=== PATIENT | male | born 1960 | race Caucasian/White ===

== ENCOUNTER 2019-05-23 13:57 | Outpatient (CLI) | payer OTHER, SELFPAY ==
--- NOTE | ~2019-05-23 | CT_ITS ---
EXAMINATION:CT chest wo con DATE: 05/23/2019 14:32 INDICATION: Pulmonary mycobacterial infection. TECHNIQUE: Computed tomography (CT) of the chest was performed without intravenous contrast. Automate d exposure control and iterative reconstruction technique were employed. The dose-length product (DLP ) was 210.03 mGy-cm. COMPARISON: Chest CT 02/23/2018 FINDINGS: There is severe emphysema. There is a new 18 mm nodule in right lower lobe. There is a new 5 mm nodule in right lower lobe. Some nodules previously seen are resolved. Calcified bilateral pulmo nary nodules are consistent with old granulomatous disease. No pleural effusion. There is diffuse enl argement of the thyroid. The heart size is normal. There are calcifications of the aortic valve and c oronary arteries. No pericardial effusion. There are no pathologically enlarged lymph nodes. There is thoracic dextroscoliosis and mild spondylosis. IMPRESSION: 1. New 18 mm and 5 mm right lower lobe pulmonary nodules, most likely infection. Given that the patie nt's pulmonary status would likely preclude any lung biopsy, consider follow-up chest CT in 3-6 month s to exclude malignancy. 2. Severe emphysema. 3. Goiter. Reviewed, dictated and finalized at location A. S AND MARKETING REPRESENTATIVE IMPRESSION: 1. New 18 mm and 5 mm right lower lobe pulmonary nodules, most likely infection . Given that the patient's pulmonary status would likely preclude any lung biop sy, consider follow-up chest CT in 3-6 months to exclude malignancy. 2. Severe emphysema. 3. Goiter.
== END 2019-05-23 13:58 | disposition home or self-care (01) ==
PROVIDERS: PCP Family Medicine Adolescent Medicine; Visit Provider Internal Medicine Critical Care Medicine
DX: A31.0 Pulmonary mycobacterial infection (principal); E04.9 Nontoxic goiter, unspecified; J43.9 Emphysema, unspecified; R91.8 Other nonspecific abnormal finding of lung field
CPT/HCPCS: 71250

== ENCOUNTER 2019-06-24 14:13 | Outpatient (RCR) | payer OTHER, SELFPAY | END 2019-09-15 23:59 | disposition home or self-care (01) | LOC: ANHLAB 14:13 | PROVIDERS: PCP Family Medicine Adolescent Medicine; Visit Provider Nurse Practitioner Family | DX: A31.0 Pulmonary mycobacterial infection (principal) | CPT/HCPCS: 87015; 87070; 87102; 87106; 87107; 87116; 87205; 87206 ==

== ENCOUNTER 2019-07-08 02:16 | Day surgery (SDC) | payer OTHER, SELFPAY ==
[2019-07-07 15:41] VITALS: BMI 23.2
[2019-07-08] VITALS (8 sets, daily range): BP systolic 101–127; BP diastolic 67–86; PULSE 65–91; RESP 14–20; TEMP 36.6; O2SAT 94–100; BMI 23.1
--- NOTE | ~2019-07-08 | CT_ITS ---
EXAMINATION: CT soft tiss neck chst ab w DATE: 07/08/2019 12:22 INDICATION: Hemoptysis. Cervical lymphadenopathy. TECHNIQUE: Computed tomography (CT) of the neck, chest, and abdomen was performed with 100 mL Omnipaq ue-350 intravenous contrast. Automated exposure control and iterative reconstruction technique were e mployed. The dose-length product was 1267.19 mGy-cm. COMPARISON: Chest CT 05/23/2019 FINDINGS: CT NECK: The thyroid is severely enlarged. There are no pathologically enlarged lymph nodes. The cerv ical carotid arteries are normal. There is moderate cervical spondylosis. CT CHEST: There is severe emphysema. There is scarring in the upper lobes. There are airspace and jorge l undglass opacities in right lower lobe, consistent with pneumonia. There are tree-in-bud opacities in basilar left lower lobe, consistent with pneumonia. There is mild atelectasis in left lower lobe. No pleural effusion. There is mild mediastinal lymphadenopathy, likely reactive. The heart size is norm al. There are calcifications of the aortic valve. There are coronary artery calcifications. No perica rdial effusion. There is thoracic dextroscoliosis and mild spondylosis. CT ABDOMEN: The liver, spleen, gallbladder, pancreas, and adrenal glands are normal. There are cysts in the kidneys measuring up to 4 mm on the left. There are no dilated loops of bowel. There are no pa thologically enlarged lymph nodes. There is no free intraperitoneal fluid. There is severe lumbar spo ndylosis. IMPRESSION: 1. Pneumonia involving the lower lobes, right worse than left. 2. Severe emphysema. 3. Goiter. 4. Mild mediastinal lymphadenopathy, likely reactive. Reviewed, dictated and finalized at location A.
--- NOTE | 2019-07-08 07:53 | WPDANESEPPF ---
Anes - Initial Pre Proc Eval Procedure: Operation Date: 07/08/19 09:00 Proposed Procedures p Bronchoscopy with Fluoroscopy - Tessa Grace MD Date/Time: 07/08/19 07:53 Surgeon: Tessa Grace MD Pre Op Diagnosis: hemoptysis Patient Data Age: 59 Gender: M Height: 6 ft 1 in Weight: 80 kg Allergies Allergy/AdvReac Type Severity Reaction Status Date / Time piperacillin Allergy Severe RASH, LIP Unverified 07/08/19 07:37 SWELLING/TINGLING, SOB tazobactam Allergy Severe RASH, LIP Unverified 07/08/19 07:37 SWELLING/TINGLING, SOB Penicillins Allergy Unknown Verified 07/08/19 07:37 Sulfa (Sulfonamide Allergy Unknown Verified 07/08/19 07:37 Antibiotics) Home Medications Medication Instructions Recorded Confirmed Type fluticasone fur. 100 mcg-umeclid 1 inhalation INHALATION DAILY #60 03/08/19 07/08/19 Rx 62.5 mcg-vilant 25 mcg each inhalat.powder albuterol sulfate 90 mcg/actuation 1 inhalation INHALATION Q4H 06/09/19 07/08/19 History aerosol inhaler aspirin 81 mg tablet,delayed 81 mg PO DAILY 06/09/19 07/08/19 History release diphenoxylate-atropine 2.5 1 tablet PO TID 06/09/19 07/08/19 History mg-0.025 mg tablet fludrocortisone 0.1 mg tablet 0.1 mg PO DAILY 06/09/19 07/08/19 History gabapentin 300 mg capsule 300 mg PO DAILY 06/09/19 07/08/19 History lithium carbonate 300 mg capsule 300 mg PO BID 06/09/19 07/07/19 History methimazole 20 mg tablet 25 mg PO DAILY tablet 06/09/19 07/07/19 History metoprolol tartrate 25 mg tablet 25 mg PO DAILY 06/09/19 07/07/19 History eemmsqxv-jur-pnnkl acid 300 1 tablet PO DAILY 06/09/19 07/07/19 History mcg-lycopene 600 mcg-lutein 300 mcg tablet nitroglycerin 0.4 mg sublingual 0.4 mg SUBLINGUAL Q5M 06/09/19 07/07/19 History tablet oxybutynin chloride 10 mg 10 mg PO DAILY 06/09/19 07/07/19 History tablet,extended release 24 hr prednisone 10 mg tablet 10 mg PO DAILY 06/09/19 07/07/19 History tamsulosin 0.4 mg capsule 0.4 mg PO DAILY 06/09/19 07/07/19 History vilazodone 40 mg tablet 40 mg PO DAILY 06/09/19 07/07/19 History vitamin B complex 1 tablet PO DAILY 06/09/19 07/07/19 History albuterol sulfate [ProAir HFA] INHALATION 07/07/19 History andtbcxcpjm-ycwemobjo-hxdfyjzl INHALATION 07/07/19 History [Trelegy Ellipta] hydrocodone-acetaminophen tablet 07/07/19 History Patient hx anesthesia problems: none Family hx anesthesia problems: none PMFSH Past Medical History Medical History Bipolar disorder Bronchiectasis Chronic back pain COPD (chronic obstructive pulmonary disease) Depression Emphysema (subcutaneous) (surgical) resulting from a procedure Hypertension Hypoxemia Pulmonary Mycobacterium avium complex (MAC) infection Tobacco abuse Surgical History Surgical History History of adenoidectomy History of appendectomy History of tonsillectomy Family History Family History Father Diabetes mellitus Hypertension Family history of malignant neoplasm Mother Diabetes mellitus Hypertension Breast cancer in situ Sibling Patient's brother is in good health Social History Social History Years smoked: 35 Smoking status: Light tobacco smoker Tobacco type: cigarettes Anes - Eval Final PreProcedure Day of Procedure 07/08/19 07:53 Patient weight: normal Heart: regular rate and rhythm Lungs: decreased breath sounds Airway: Mallampati scale class II Neurological: alert and oriented Last oral intake: >/= 8 hours ASA classification: IV Emergent: no Anesthetic plan: proceed Anesthesia type and monitoring: general LMA and standard monitoring Informed Consent: The patient's anesthetic plan and its attendant risks and benefits were discussed with the patient/family/POA
[2019-07-08] MEDS: LACTATED RINGERS 1,000 ML 30 ML IV CONT (08:17)
--- NOTE | 2019-07-08 08:18 | SUR.PREOP ---
0810 patient concerned about bleeding during the procedure since he took his aspirin yesterday and spoke wit someone at the hospital this morning and was told blood work would need to be done before the procedure. Patient couldn't remember who he spoke with. I called Dr. Grace at 0818 regarding this issue. No order were received. The message was relayed to the patient and he voiced understanding. Amara Rodriguez Rn
[2019-07-08 11:14] LABS: Basophils Absolute Auto 0.1 K/mm3 (0.0-0.1); Basophils Percent Auto 0.8 % (0.2-1.2); Eosinophils Absolute Auto 0.3 K/mm3 (0-0.3); Eosinophils Percent Auto 4.4 % (0-4.4); Hemoglobin 10.6 g/dL (14.0-18.0); Immature Granulocyte Absolute 0.02 K/mm3 (0.00-0.031); Immature Granulocyte Percent A 0.3 % (0-0.5); Lymphocytes Absolute Auto 1.39 K/mm3 (0.9-3.2); Lymphocytes Percent Auto 22.6 % (18.3-44.2); Mean Corpuscular HGB Conc 31.2 g/dl (32-36); Mean Corpuscular Volume 99.4 fl (80-100); Mean Platelet Volume 8.6 fl (7.4-10.4); Monocytes Absolute Auto 0.5 K/mm3 (0.1-0.6); Monocytes Percent Auto 8.6 % (2.6-8.5); Neutrophils Absolute Auto 3.9 K/mm3 (1.3-6.7); Neutrophils Percent Auto 63.3 % (45.5-73.1); Platelet Count Result 191 k/mm3 (150-375); Red Blood Count 3.42 M/mm3 (4.6-6.20); Red Cell Distribution Width 13.9 % (11.5-14.5); White Blood Count 6.1 K/mm3 (4.5-10.0)
--- NOTE | 2019-07-08 11:17 | SUR.PHASEII ---
PT TRANSFERRED BY WHEELCHAIR TO CT SCAN DR BAILEY WILL TALK TO HIM THERE AND DISCHARGE, CT AWARE TO REMOVE IV PRIOR TO DISCHARGE
[2019-07-08 11:24] LABS: INR 1.1; Prothrombin Time 13.6 Seconds (11.1-14.7)
[2019-07-08 11:25] LABS: Partial Thromboplastin Time 31.6 SECONDS (22.3-36.8)
[2019-07-08 11:26] LABS: Blood Urea Nitrogen 11 mg/dL (9-20); Calcium 9.5 mg/dL (8.4-10.2); Carbon Dioxide 33 mmol/L (22-30); Chloride 100 mmol/L (98-107); Estimated CRCL calculation 81 ml/min; Estimated Glomerular Filt Rate > 60; Glucose 89 mg/dL (75-110); Potassium 4.6 mmol/L (3.4-5.0); Sodium 138 mmol/L (137-145)
[2019-07-09 14:35] LABS: Pan-SARS RNA: NEGATIVE (NEGATIVE); SARS-CoV-2 RNA: NEGATIVE (NEGATIVE)
--- NOTE | 2019-07-20 14:50 | WPDHPUPDATE1 ---
History and Physical Update Update Date/Time: 07/20/19 14:50 History and Physical has been reviewed from office visit June 09, 2019, including an updated exam of the patient. There are NO changes in the patient's condition. Risks, benefits, and alternatives have been discussed and questions answered. Patient agrees to proceed with procedure.
== END 2019-07-08 11:24 | disposition home or self-care (01) ==
PROVIDERS: PCP Family Medicine Adolescent Medicine; Visit Provider Internal Medicine Critical Care Medicine
PROC: 0BJ08ZZ Inspection of Tracheobronchial Tree, Via Natural or Artificial Opening Endoscopic (ICD-10-PCS; CPT 31622; principal; 2019-07-08 09:00)
DX: R04.2 Hemoptysis (principal); R59.0 Localized enlarged lymph nodes; R91.8 Other nonspecific abnormal finding of lung field; J44.9 Chronic obstructive pulmonary disease, unspecified; E04.9 Nontoxic goiter, unspecified; I10 Essential (primary) hypertension; F31.9 Bipolar disorder, unspecified; F17.210 Nicotine dependence, cigarettes, uncomplicated; Z79.82 Long term (current) use of aspirin; Z86.19 Personal history of other infectious and parasitic diseases; Z99.81 Dependence on supplemental oxygen; Z20.828 Contact with and (suspected) exposure to other viral communicable diseases
CPT/HCPCS: 31624; 36415; 70491; 71260; 74160; 80048; 85025; 85610; 85730; 87015; 87070; 87102; 87116; 87205; 87206; 87635; J0330; J2370; J2704; J3010; J7120; Q9967; U0002

== ENCOUNTER 2019-07-18 14:39 | Outpatient (CLI) | payer OTHER, SELFPAY ==
[2019-07-18 15:33] LABS: T4 Thyroxine 1.25 ug/dL (5.53-11.0)
[2019-07-21 02:05] LABS: Thyroid Peroxidase Antibodies <1 IU/mL (<9)
== END 2019-07-18 14:40 | disposition home or self-care (01) ==
PROVIDERS: PCP Family Medicine Adolescent Medicine; Visit Provider Family Medicine Adolescent Medicine
DX: E04.0 Nontoxic diffuse goiter (principal)
CPT/HCPCS: 36415; 84436; 84443; 84480; 86376

== ENCOUNTER 2020-02-22 16:16 | Inpatient (IN) | payer OTHER, SELFPAY ==
[2020-02-22] VITALS (13 sets, daily range): BP systolic 106–134; BP diastolic 71–85; PULSE 89–108; RESP 10–23; TEMP 36.6–36.8; O2SAT 94–100; BMI 25.9
--- NOTE | ~2020-02-22 | XR_ITS ---
EXAMINATION: XR chest 1V portable DATE: 02/22/2020 17:17 INDICATION: COPD presenting with shortness of breath TECHNIQUE: frontal view of the chest was obtained. COMPARISON: 10/25/[address] dated 05/23/2019 FINDINGS: Again seen is severe emphysema with regions of increased lucency and architectural distortion with li near bands of atelectasis/scarring with lateral mid and upper lung zone predominance. There is increa sed indistinct interstitial pattern in the bilateral mid and lower lung zones with bronchial wall thi ckening suggesting mild pulmonary edema although differential would include pneumonia. No pleural eff usion or pneumothorax. The cardiomediastinal silhouette is normal. Mild thoracic dextroscoliosis with mild spondylosis. IMPRESSION: 1. Increased interstitial pattern and bronchial wall thickening in the bilateral mid and lower lung z ones likely representing mild pulmonary edema superimposed over severe emphysema. Differential would include pneumonia. Reviewed, dictated and finalized at location . CTION MOLDING MACHINE SETTER IMPRESSION: 1. Increased interstitial pattern and bronchial wall thickening in the bilatera l mid and lower lung zones likely representing mild pulmonary edema superimpose d over severe emphysema. Differential would include pneumonia.
--- NOTE | ~2020-02-22 | CT_ITS ---
EXAMINATION: CTA chest PE protocol DATE: 02/22/2020 18:04 INDICATION: Chest pain and shortness of breath TECHNIQUE: Computed tomography (CT) pulmonary angiogram of the chest was performed with 100 mL Omnipa que-350 intravenous contrast. Additional 3D reconstructions utilizing coronal maximum intensity proje ction (MIP) were performed. Automated exposure control and iterative reconstruction technique were em ployed. The dose-length product was 610.54 mGy-cm. COMPARISON: 07/08/2019, 05/23/2019 and 05/12/2016 FINDINGS: Excellent contrast opacification of the pulmonary arteries. There is mild streak artifact from dense contrast in the superior vena cava and right atrium. Mild scattered respiratory motion artifact which mildly decreases sensitivity in some of the smaller subsegmental pulmonary arteries at the left lung base. There appears be a single pulmonary arterial filling defect in the apical posterior segmental pulmonary artery of the left upper lobe which extends to the region of scarring which appears new sin ce the most recent study at which time it appeared well opacified with contrast. No other evident pul monary arterial filling defects identified. Severe emphysema with unchanged linear scarring in the bi lateral upper lobes. There are few patchy areas of consolidation in the left upper lobe extending tow ards the lingula consistent with pneumonia. There is scattered groundglass opacity and increased prom inence of the pulmonary interstitium in the right middle and lower lobes with some additional consoli dation in the posterior basilar right lower lobe which could represent either additional pneumonia or less likely asymmetric pulmonary edema. No pleural effusion. Multiple calcified nodules scattered th roughout the left lung consistent with old granulomatous disease. Heart size is normal. No pericardia l effusion. Atherosclerotic coronary artery calcification and aortic valve calcification. Thoracic ao rta is normal in caliber with no dissection. Margin of the central pulmonary arteries consistent with pulmonary arterial hypertension. Again seen is marked enlargement of the thyroid. No pathologically enlarged thoracic lymphadenopathy. Visualized upper abdomen is unremarkable. Thoracic dextroscoliosis with mild spondylosis. IMPRESSION: 1. Single pulmonary arterial filling defect in the apical posterior segmental pulmonary artery of the left upper lobe consistent with pulmonary embolism. 2. New patchy airspace opacities in the left upper lobe and lingula and more diffuse opacities in the right middle and lower lobes concerning for pneumonia or the right middle and lower lobes less likel y asymmetric pulmonary edema. 3. Severe emphysema with chronic scarring in the bilateral upper lobes. 4. Chronic enlargement of the central pulmonary arteries consistent with arterial hypertension. 5. Goiter. Reviewed, dictated and finalized at location H. NGINEER IMPRESSION: 1. Single pulmonary arterial filling defect in the apical posterior segmental p ulmonary artery of the left upper lobe consistent with pulmonary embolism. 2. New patchy airspace opacities in the left upper lobe and lingula and more di ffuse opacities in the right middle and lower lobes concerning for pneumonia or the right middle and lower lobes less likely asymmetric pulmonary edema. 3. Severe emphysema with chronic scarring in the bilateral upper lobes. 4. Chronic enlargement of the central pulmonary arteries consistent with arteri al hypertension. 5. Goiter.
--- NOTE | 2020-02-22 16:43 | ECG_ITS ---
Measurements Intervals [place] Rate: 100 P: 77 WA: 126 QRS: 70 QRSD: 110 T: 51 QT: 327 QTc: 423 Interpretive Statements SINUS TACHYCARDIA POSSIBLE RIGHT ATRIAL ENLARGEMENT INTRAVENTRICULAR CONDUCTION DELAY PEAKED T WAVES- CONSIDER HYPERKALEMIA OR ISCHEMIA BASELINE ARTIFACT- I, II, III, AVR, AVL, AVF, V1 ABNORMAL ECG Electronically Signed On 02-23-2020 8:43:21 CIGARETTE INSPECTOR by Maycol Grady D.O.
--- NOTE | 2020-02-22 16:51 | ED.SOB ---
HPI - SOB/Dyspnea General Chief Complaint: Shortness of Breath/Dyspnea Stated Complaint: SOB Time Seen by Provider: 02/22/20 16:18 Source: patient Mode of arrival: EMS Limitations: no limitations History of Present Illness HPI Narrative: This patient is a 59 year old male with history of MAC infection, COPD, home oxygen 8L [place] who presents from home with complaint of shortness of breath. He states approximately 1 week ago he began not feeling well. He reports increased fatigue, chills and worsening cough with nixon sputum. 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 Lopez, 3 days ago and he was started on azithromycin. He states his symptoms have not improved. He states tonight he was having a conversation with someone and it was upsetting. He was on the phone for an hour and after he got off the phone he states he states he started feeling short of breath. He reports he was checking his oxygen and it seemed to be dropping so he became scared and starting having more shortness of breath. He also reports chest pain. He called 911 .EMs reports his oxygen saturation was 88% on his home 8 L NC, so he was placed on a NRB. On arrival to ER, he was placed back on his home oxygen and his oxygen saturation is 98% on room air. Related Data Home Medications Medication Instructions Recorded Confirmed albuterol sulfate 90 mcg/actuation 1 inhalation INHALATION Q4H 06/09/19 07/08/19 aerosol inhaler aspirin 81 mg tablet,delayed 81 mg PO DAILY 06/09/19 07/08/19 release diphenoxylate-atropine 2.5 1 tablet PO TID 06/09/19 07/08/19 mg-0.025 mg tablet fludrocortisone 0.1 mg tablet 0.1 mg PO DAILY 06/09/19 07/08/19 gabapentin 300 mg capsule 300 mg PO DAILY 06/09/19 07/08/19 lithium carbonate 300 mg capsule 300 mg PO BID 06/09/19 07/07/19 methimazole 20 mg tablet 25 mg PO DAILY tablet 06/09/19 07/07/19 metoprolol tartrate 25 mg tablet 25 mg PO DAILY 06/09/19 07/07/19 iclrdjot-zqs-dwucn acid 300 1 tablet PO DAILY 06/09/19 07/07/19 mcg-lycopene 600 mcg-lutein 300 mcg tablet nitroglycerin 0.4 mg sublingual 0.4 mg SUBLINGUAL Q5M 06/09/19 07/07/19 tablet oxybutynin chloride 10 mg 10 mg PO DAILY 06/09/19 07/07/19 tablet,extended release 24 hr tamsulosin 0.4 mg capsule 0.4 mg PO DAILY 06/09/19 07/07/19 vilazodone 40 mg tablet 40 mg PO DAILY 06/09/19 07/07/19 vitamin B complex 1 tablet PO DAILY 06/09/19 07/07/19 hydrocodone-acetaminophen tablet 07/07/19 Allergies Allergy/AdvReac Type Severity Reaction Status Date / Time piperacillin Allergy Severe RASH, LIP Verified 02/22/20 21:49 SWELLING/TINGLING, SOB tazobactam Allergy Severe RASH, LIP Verified 02/22/20 21:49 SWELLING/TINGLING, SOB Penicillins Allergy Unknown Unknown Verified 02/22/20 21:49 Sulfa (Sulfonamide Allergy Unknown Swelling Verified 02/22/20 21:49 Antibiotics) Review of Systems Review of Systems: All systems reviewed & are unremarkable except as noted in HPI and below Constitutional: Constitutional: Reports chills and Denies fever(s) ENT: Denies sore throat Cardiovascular: Cardiovascular: Reports chest pain and Denies radiating jaw, neck or arm pain Respiratory: Respiratory: Reports cough, Reports dyspnea and Reports wheezing Gastrointestinal: Gastrointestinal: Denies abdominal pain, Denies nausea and Denies vomiting PMFSH Past Medical History Medical History Bipolar disorder BPH (benign prostatic hyperplasia) Bronchiectasis Chronic back pain COPD (chronic obstructive pulmonary disease) Depression With previous suicide attempts Emphysema lung History of hepatitis C History of mitral valve prolapse Hypertension Hypoxemia Pulmonary Mycobacterium avium complex (MAC) infection Tobacco abuse Surgical History Surgical History H/O colonoscopy with polypectomy History of adenoidectomy History of appendectomy History
[2020-02-22 17:01] LABS: Basophils Percent Auto 0.1 % (0.2-1.2); Eosinophils Percent Auto 0.4 % (0-4.4); Hematocrit 34.6 % (42.0-52.0); Hemoglobin 10.5 g/dL (14.0-18.0); Immature Granulocyte Absolute 0.04 K/mm3 (0.00-0.031); Immature Granulocyte Percent A 0.4 % (0-0.5); Lymphocytes Absolute Auto 0.35 K/mm3 (0.9-3.2); Lymphocytes Percent Auto 3.7 % (18.3-44.2); Mean Corpuscular HGB Conc 30.3 g/dl (32-36); Mean Corpuscular Hemoglobin 28.6 pg (26-34); Mean Corpuscular Volume 94.3 fl (80-100); Mean Platelet Volume 9.3 fl (7.4-10.4); Monocytes Absolute Auto 0.5 K/mm3 (0.1-0.6); Monocytes Percent Auto 5.3 % (2.6-8.5); Neutrophils Absolute Auto 8.6 K/mm3 (1.3-6.7); Neutrophils Percent Auto 90.1 % (45.5-73.1); Platelet Count Result 207 k/mm3 (150-375); Red Blood Count 3.67 M/mm3 (4.6-6.20); Red Cell Distribution Width 13.8 % (11.5-14.5); White Blood Count 9.6 K/mm3 (4.5-10.0)
[2020-02-22 17:06] LABS: Alveolar/Arterial O2 Gradient 184.2 mmHg; Base Excess ABG 15.1 mEq/l (+/-2.0); Fractional Inspired Oxygen 44 %; HCO3 ABG 42.3 mEq/l (22.0-26.0); Oxygen Content ABG 14.4 %vol (16.0-22.0); Oxygen Saturation ABG 87.5 % (95.0-100.0); Oxyhemoglobin 89.8 % THb (90.0-100.0); PO2 ABG 54.1 mmHg (80.0-100.0); PO2 FiO2 Ratio Arterial Blood 1.23 %; Total Hemoglobin 11.4 g/dL (12.0-18.0); pH ABG 7.423 (7.350-7.450)
[2020-02-22 17:11] LABS: INR 0.9; Prothrombin Time 12.7 Seconds (11.1-14.7)
[2020-02-22 17:12] LABS: Device NASAL CANNULA; Modified Allen's Test Pass; PCO2 ABG 66.2 mmHg (35.0-45.0); Site Drawn LEFT RADIAL
[2020-02-22 17:15] LABS: Alanine Aminotransferase 25 U/L (4-50); Albumin Level 3.8 g/dL (3.5-5.1); Alkaline Phosphatase 79 U/L (38-126); Anion Gap 6.99999 mmol/L (8-16); Aspartate Amino Transferase 28 U/L (17-59); Bilirubin,Total 0.5 mg/dL (0.2-1.3); Blood Urea Nitrogen 17 mg/dL (9-20); Calcium 9.7 mg/dL (8.4-10.2); Carbon Dioxide > 40 mmol/L (22-30); Chloride 95 mmol/L (98-107); Estimated CRCL calculation 104 ml/min; Estimated Glomerular Filt Rate > 60; Glucose 163 mg/dL (75-110); Potassium 3.9 mmol/L (3.4-5.0); Sodium 142 mmol/L (137-145)
[2020-02-22 17:20] LABS: Hypochromasia 1+ (NORMAL); Platelet Estimate Adequate (Adequate)
[2020-02-22 17:25] LABS: Troponin I < 0.012 ng/mL (0.000-0.034)
[2020-02-22] MEDS: ENOXAPARIN 80 MG/0.8 ML SYRINGE SUB-Q (19:02)
[2020-02-22] MEDS: ALBUTEROL SULFATE (*SP) AEROSOL 1 PUFF 6 PUFF INHALATION (20:05)
--- NOTE | 2020-02-22 20:39 | PC.NURSE ---
after primary RN called report, had pt. ready to transport and departed pt. from ED, floor called and reported the room was not ready. Pt. really left department at 2039
--- NOTE | 2020-02-22 21:46 | ADMGEN ---
This patient, Ronald De La Torre, was admitted to [facility] Surg Room 321-01. Patient/family oriented to hospital policies and general routines including ID bracelet, bed and alarms, visiting hours, pain management, procedures, bathroom and other care routines, personal items, smoking policy, room service/diet, and visiting hours. Information on how to activate the Rapid Response Team has been discussed. Patient/Family are encouraged to report perceived risks to care and to ask questions if they do not understand what they are told or what they should do.
[2020-02-23] VITALS (13 sets, daily range): BP systolic 111–134; BP diastolic 72–85; PULSE 75–110; RESP 16–20; TEMP 36.3–37.2; O2SAT 97–100
--- NOTE | 2020-02-23 00:14 | PM.IMHP ---
H&P: HPI History of Present Illness Date/Time: 02/23/20 00:14 Chief complaint: acute on chronic respiratory failure/pneumonia/PUI Narrative: Ronald De La Torre is a 59 year old male who has a history of MAC infection, COPD and chronic hypoxia. Patient is chronically on oxygen 8 L per nasal cannula. Patient had seen the manager inspection Dr. Grace here in the past but she referred him to a manager inspection in [place]. It is Dr. Torres at [place]. The patient stated that he self [employer] but to different people from [employer] have been positive for COVID and they had been coming over to help him and delivering items for him. The patient stated that he started feeling ill about a week ago. He had increase fatigue chills and worsening cough with nixon sputum. Patient stated that he could not even get issues on tonight that he was short of breath. The patient tells me that he pumps his oxygen up to 15 L exertion. The patient was placed on a non-rebreather and route to the hospital. Upon arrival the patient was placed back on oxygen at 8 L per nasal cannula came up to 98%. The patient is chronically on daily prednisone. The patient called his manager inspection about 3 days ago was placed on a Zithromax. The patient had been on a phone call tonight and became upset. This is when he developed a sudden increased shortness of breath. Patient CT was read as single pulmonary artery filling deficit and apical posterior segmental pulmonary artery of the left upper lobe consistent with pulmonary embolism. New patchy airspace opacities in left upper lobe and lingular a more diffuse opacities in the right middle and lower lobes concerning for pneumonia on the right middle and lower lobe least likely asymptomatic pulmonary edema. Severe emphysema with chronic scarring in the bilateral upper lobes. Chronic enlargement of the central pulmonary arteries consistent with arterial hypertension. goiter. Patient was started on Levaquin and give subcu Lovenox. Patient is being admitted inpatient status on date of service 02/22/20. Review of Systems Review of Systems: All systems reviewed & are unremarkable except as noted in HPI and below Constitutional: Constitutional: Reports as per HPI and Reports no additional constitutional complaints Eyes: Eyes: Reports as per HPI and Reports no additional eye complaints ENT: Reports system reviewed and no additional complaints, except as documented and Reports Normal hearing present Cardiovascular: Cardiovascular: Reports no additional cardiovascular complaints Respiratory: Respiratory: Reports no additional respiratory complaints and Reports no additional respiratory complaints Gastrointestinal: Gastrointestinal: Reports as per HPI and Reports no additional gastrointestinal complaints Musculoskeletal: Musculoskeletal: Reports no additional musculoskeletal complaints Integumentary/Breasts: Skin/Breast: Reports system reviewed and no additional complaints, except as docu and Reports as per HPI Neurologic: Reports system reviewed and no additional complaints, except as documented, Reports as per HPI and Reports Normal hearing present Psychiatric: Psychiatric: Reports no additional psychiatric complaints and Reports as per HPI Endocrine: Endocrine: Reports no additional endocrine complaints Hematologic/Lymphatic: Hematologic/Lymphatic: Reports no additional hematologic/lymphatic complaints Allergic/Immunologic: Allergic/Immunologic: Reports no additional allergic/immunologic complaints [facility] Past Medical History Medical History (Updated 02/23/20 @ 00:44 by Jennifer Hutchison NP) Bipolar disorder BPH (benign prostatic hyperplasia) Bronchiectasis Chronic back pain COPD (chronic obstructive pulmonary disease) Depression With previous suicide attempts Emphysema lung History of hepatitis C History of mitral valve prolapse Hypertension Hypoxemia Pulmonary Mycobacterium avium complex (MAC) infection Tobacco abuse Surgical H
--- NOTE | 2020-02-23 04:36 | PC.NURSE ---
Patient states on admission not having any valuables that he would like to be locked in our safe.
[2020-02-23] MEDS: ENOXAPARIN 100 MG/ML SYRINGE 90 MG SUB-Q ×2 (06:10→17:26)
[2020-02-23 07:05] LABS: Basophils Percent Auto 0.4 % (0.2-1.2); Eosinophils Absolute Auto 0.2 K/mm3 (0-0.3); Eosinophils Percent Auto 2.7 % (0-4.4); Hematocrit 31.4 % (42.0-52.0); Hemoglobin 9.5 g/dL (14.0-18.0); Immature Granulocyte Absolute 0.06 K/mm3 (0.00-0.031); Immature Granulocyte Percent A 0.8 % (0-0.5); Lymphocytes Absolute Auto 1.59 K/mm3 (0.9-3.2); Lymphocytes Percent Auto 20.6 % (18.3-44.2); Mean Corpuscular HGB Conc 30.3 g/dl (32-36); Mean Corpuscular Hemoglobin 28.3 pg (26-34); Mean Corpuscular Volume 93.5 fl (80-100); Mean Platelet Volume 9.4 fl (7.4-10.4); Monocytes Absolute Auto 0.8 K/mm3 (0.1-0.6); Monocytes Percent Auto 9.9 % (2.6-8.5); Neutrophils Absolute Auto 5.1 K/mm3 (1.3-6.7); Neutrophils Percent Auto 65.6 % (45.5-73.1); Platelet Count Result 202 k/mm3 (150-375); Red Blood Count 3.36 M/mm3 (4.6-6.20); Red Cell Distribution Width 13.9 % (11.5-14.5); White Blood Count 7.7 K/mm3 (4.5-10.0)
[2020-02-23 07:25] LABS: Alanine Aminotransferase 22 U/L (4-50); Albumin Level 3.3 g/dL (3.5-5.1); Alkaline Phosphatase 68 U/L (38-126); Anion Gap 4.99999 mmol/L (8-16); Aspartate Amino Transferase 28 U/L (17-59); Bilirubin,Total 0.5 mg/dL (0.2-1.3); Blood Urea Nitrogen 16 mg/dL (9-20); Calcium 9.2 mg/dL (8.4-10.2); Carbon Dioxide > 40 mmol/L (22-30); Chloride 96 mmol/L (98-107); Estimated CRCL calculation 113 ml/min; Estimated Glomerular Filt Rate > 60; Glucose 93 mg/dL (75-110); Potassium 3.7 mmol/L (3.4-5.0); Sodium 141 mmol/L (137-145)
[2020-02-23] MEDS: ALBUTEROL SULFATE (*SP) AEROSOL 1 PUFF 6 PUFF INHALATION ×2 (08:23→11:52)
[2020-02-23] MEDS: METOPROLOL TARTRATE 12.5 MG TABLET PO (10:10)
[2020-02-23] MEDS: FLUDROCORTISONE ACETATE 0.1 MG TABLET PO ×2 (10:10→17:26)
[2020-02-23] MEDS: TAMSULOSIN HCL 0.4 MG CAPSULE PO (10:11)
[2020-02-23] MEDS: GABAPENTIN 300 MG CAPSULE PO ×2 (10:11→17:27)
[2020-02-23] MEDS: LITHIUM CARBONATE 300 MG CAPSULE PO ×2 (10:11→17:27)
[2020-02-23] MEDS: ASPIRIN 81 MG ENTERIC TABLET PO (10:12)
[2020-02-23] MEDS: LEVOTHYROXINE SODIUM 100 MCG TABLET PO (10:12)
[2020-02-23] MEDS: predniSONE 20 MG TABLET 60 MG PO (12:42)
--- NOTE | 2020-02-23 14:46 | PM.IMPN ---
Progress Note: A&P Assessment and Plan (1) Suspected COVID-19 virus infection: Code(s): Z20.828 - Contact with and (suspected) exposure to other viral communicable diseases Status: Acute Assessment and Plan: Suspect bilateral pneumonia is likely due to COVID-19 -will continue Eric at this time until testing is back -continue oxygen -he states he usually is on 8-10 L at home but he is satting 98% with 5 L here -continue prednisone, switch to dexamethasone if COVID-19 comes back positive -likely home in 1-2 days if he continues to improve (2) Pulmonary embolism: Code(s): I26.99 - Other pulmonary embolism without acute cor pulmonale Status: Acute Assessment and Plan: Noted on CTA on admission -continue Lovenox at this time -once the pharmacies open tomorrow, will gil novel anticoagulants -may need to start warfarin if above are unaffordable (3) Depression: Code(s): F32.9 - Major depressive disorder, single episode, unspecified Status: Chronic Assessment and Plan: Chronic but stable -continue lithium, Zyprexa and Viibryd (4) Hypertension: Code(s): I10 - Essential (primary) hypertension Status: Chronic Assessment and Plan: Last blood pressure 121/85 -continue metoprolol (5) Bipolar disorder: Code(s): F31.9 - Bipolar disorder, unspecified Status: Chronic Assessment and Plan: Chronic and well controlled -continue lithium, Zyprexa and Viibryd (6) COPD (chronic obstructive pulmonary disease): Qualifiers: COPD type: unspecified COPD Qualified Code(s): J44.9 - Chronic obstructive pulmonary disease, unspecified Code(s): J44.9 - Chronic obstructive pulmonary disease, unspecified Status: Acute Assessment and Plan: Severe emphysema seen on CTA -continue O2 (7) Dependence on nocturnal oxygen therapy: Code(s): Z99.81 - Dependence on supplemental oxygen Status: Acute (8) BPH (benign prostatic hyperplasia): Code(s): N40.0 - Benign prostatic hyperplasia without lower urinary tract symptoms Status: Chronic Assessment and Plan: Continue Flomax (9) Hypothyroid: Code(s): E03.9 - Hypothyroidism, unspecified Status: Acute Assessment and Plan: Will continue home levothyroxine -check TSH in the morning since his last TSH was 46 back in June 2019 Time Spent With Patient Time with patient: 25 - 35 minutes Subjective Date/time seen: 02/23/20 14:46 Interval history: Pt is a 59-year-old male here for pneumonia, suspect COVID-19. Patient was seen today and states he is doing okay. He has little bit of a cough and some shortness of breath but overall doing okay. He denies chest pain, fevers, chills, nausea, vomiting, abdominal pain, or hallucinations. He says he has a lot of phlegm but unable to cough it. Review of Systems Review of Systems: All systems reviewed & are unremarkable except as noted in HPI and below Exam Narrative: Exam Narrative: General: Well developed well nourished patient in NAD HEENT: normocephalic Neck: supple Neuro: Alert and oriented x4 CV:RRR Resp: Rhonchi bilaterally, no wheezing Abd: Soft, non distended. No pain to palpation. Positive bowel sounds Extremities: No swelling, erythema, or pain to palpation. Objective Data Vital Signs Vital Signs: Vital Signs - 24 hr 02/22/20 16:13 02/22/20 16:22 02/22/20 16:31 Temperature 98.2 F Pulse Rate 100 99 105 H Respiratory Rate 23 H 16 18 Blood Pressure 134/84 134/83 117/82 Pulse Oximetry 97 100 99 02/22/20 16:46 02/22/20 17:01 02/22/20 17:31 Temperature Pulse Rate 95 97 95 Respiratory Rate 13 17 19 Blood Pressure 111/73 130/85 106/71 Pulse Oximetry 97 94 95 02/22/20 18:05 02/22/20 18:31 02/22/20 18:45 Temperature Pulse Rate 89 Respiratory Rate 12 10 L Blood Pressure 116/80 112/75 Pulse Oximetry 1
[2020-02-24] VITALS (24 sets, daily range): BP systolic 116–145; BP diastolic 71–85; PULSE 80–135; RESP 18–20; TEMP 36.5–37.2; O2SAT 85–97
[2020-02-24] MEDS: ENOXAPARIN 100 MG/ML SYRINGE 90 MG SUB-Q ×2 (06:29→18:02)
[2020-02-24] MEDS: LEVOTHYROXINE SODIUM 100 MCG TABLET PO (06:29)
[2020-02-24] MEDS: TAMSULOSIN HCL 0.4 MG CAPSULE PO (07:49)
[2020-02-24] MEDS: predniSONE 20 MG TABLET 60 MG PO (07:49)
[2020-02-24] MEDS: FLUDROCORTISONE ACETATE 0.1 MG TABLET PO ×2 (07:49→17:26)
[2020-02-24] MEDS: LITHIUM CARBONATE 300 MG CAPSULE PO ×2 (07:50→17:27)
[2020-02-24] MEDS: METOPROLOL TARTRATE 12.5 MG TABLET PO (07:50)
[2020-02-24] MEDS: GABAPENTIN 300 MG CAPSULE PO ×2 (07:50→17:26)
[2020-02-24] MEDS: ASPIRIN 81 MG ENTERIC TABLET PO (07:50)
[2020-02-24 07:52] LABS: Hemoglobin 10.4 g/dL (14.0-18.0); Mean Corpuscular HGB Conc 30.6 g/dl (32-36); Mean Corpuscular Hemoglobin 28.1 pg (26-34); Mean Corpuscular Volume 91.9 fl (80-100); Mean Platelet Volume 9.5 fl (7.4-10.4); Platelet Count Result 239 k/mm3 (150-375); Red Cell Distribution Width 14.1 % (11.5-14.5); White Blood Count 8.7 K/mm3 (4.5-10.0)
[2020-02-24 08:11] LABS: Anion Gap 5 mmol/L (8-16); Blood Urea Nitrogen 20 mg/dL (9-20); CRP 2.4 mg/dL (<1.0); Calcium 9.3 mg/dL (8.4-10.2); Carbon Dioxide 36 mmol/L (22-30); Chloride 100 mmol/L (98-107); Estimated CRCL calculation 130 ml/min; Estimated Glomerular Filt Rate > 60; Glucose 123 mg/dL (75-110); Magnesium 2.1 mg/dL (1.6-2.3); Potassium 3.6 mmol/L (3.4-5.0); Sodium 141 mmol/L (137-145)
[2020-02-24] MEDS: ALBUTEROL SULFATE NEB 2.5 MG/0.5 ML INH 5 MG INHALATION ×3 (08:47→21:49)
[2020-02-24 09:03] LABS: Thyroid Stimulating Hormone Reflex 0.223 uIU/mL (0.465-4.68)
[2020-02-24 10:10] LABS: Free T4 Free Thyroxine Reflex 1.84 ng/dL (0.78-2.19)
[2020-02-24 11:29] LABS: Total Triiodothyronine (T3) 1.13 NG/ML (0.97-1.69)
--- NOTE | 2020-02-24 12:26 | PM.IMPN ---
Progress Note: A&P Assessment and Plan (1) Suspected COVID-19 virus infection: Code(s): Z20.828 - Contact with and (suspected) exposure to other viral communicable diseases Status: Acute Assessment and Plan: Suspect bilateral pneumonia is likely due to COVID-19 -will continue Levaquin at this time until testing is back -continue oxygen -he states he usually is on 8-10 L at home but he is satting 98% with 5 L here -continue prednisone, switch to dexamethasone if COVID-19 comes back positive -will place home O2 evaluation since the patient is nervous about his home oxygen requirements being different than when he currently needs -likely home in 1-2 days if he continues to improve (2) Pulmonary embolism: Code(s): I26.99 - Other pulmonary embolism without acute cor pulmonale Status: Acute Assessment and Plan: Noted on CTA on admission -continue Lovenox at this time -care coordination currently pricing Eliquis -may need to start warfarin if above are unaffordable -Will order echo (3) Depression: Code(s): F32.9 - Major depressive disorder, single episode, unspecified Status: Chronic Assessment and Plan: Chronic but stable -continue lithium, Zyprexa and Viibryd (4) Hypertension: Code(s): I10 - Essential (primary) hypertension Status: Chronic Assessment and Plan: Last blood pressure 140/82 -continue metoprolol (5) Bipolar disorder: Code(s): F31.9 - Bipolar disorder, unspecified Status: Chronic Assessment and Plan: Chronic and well controlled -continue lithium, Zyprexa and Viibryd (6) COPD (chronic obstructive pulmonary disease): Qualifiers: COPD type: unspecified COPD Qualified Code(s): J44.9 - Chronic obstructive pulmonary disease, unspecified Code(s): J44.9 - Chronic obstructive pulmonary disease, unspecified Status: Acute Assessment and Plan: Severe emphysema seen on CTA -continue O2 (7) Dependence on nocturnal oxygen therapy: Code(s): Z99.81 - Dependence on supplemental oxygen Status: Acute (8) BPH (benign prostatic hyperplasia): Code(s): N40.0 - Benign prostatic hyperplasia without lower urinary tract symptoms Status: Chronic Assessment and Plan: Continue Flomax (9) Hypothyroid: Code(s): E03.9 - Hypothyroidism, unspecified Status: Acute Assessment and Plan: Will continue home levothyroxine -TSH slightly low but T4 normal. No indication for medication change at this time. TSH likely abnormal due to current illness Subjective Date/time seen: 02/24/20 12:26 Interval history: Pt is a 59-year-old male here for pneumonia, suspect COVID-19. Patient was seen today and states he is doing okay. He says he does okay unless he is moving around a lot or coughing a lot and then he feels really short of breath. He has not really been out of bed. He is still coughing up some phlegm but not able to expel it. He has some chest pain with cough but denies fevers, chills, nausea, vomiting, abdominal pain, or hallucinations. Exam Narrative: Exam Narrative: General: Well developed well nourished patient in NAD HEENT: normocephalic Neck: supple Neuro: Alert and oriented x4 CV:RRR Resp: Clear to auscultation today--improved Abd: Soft, non distended. No pain to palpation. Positive bowel sounds Extremities: No swelling, erythema, or pain to palpation. Objective Data Vital Signs Vital Signs: Vital Signs - 24 hr 02/23/20 16:00 02/23/20 20:00 02/24/20 00:00 Temperature 99.0 F 97.5 F L 98.9 F Pulse Rate 100 100 89 Respiratory Rate 20 20 20 Blood Pressure 111/72 134/77 132/71 Pulse Oximetry 98 98 97 02/24/20 04:00 02/24/20 07:50 02/24/20 08:00 Temperature 98.1 F 97.7 F Pulse Rate 87 87 90 Respiratory Rate 20 18 Blood Pressure 116/77 140/82 Pulse Oximetry 91 93 02/24/20 08:47 02/23
--- NOTE | 2020-02-24 16:08 | HOMEO2EVAL ---
Home Oxygen Evaluation RC: Home Oxygen (O2) Evaluation Start: 02/24/20 12:26 Freq: ONCE Status: Active Protocol: RPE Activity Type Activity Date Activity User E-Sign Co-Sign Detail Recorded Client Recorded Date Recorded By Document 02/24/20 15:45 KEANU [email or web address] 02/24/20 16:08 KEANU Document 02/24/20 15:48 KEANU [email or web address] 02/24/20 16:08 KEANU Document 02/24/20 15:50 KEANU [email or web address] 02/24/20 16:08 KEANU Document 02/24/20 15:53 KEANU [email or web address] 02/24/20 16:08 KEANU Document 02/24/20 15:55 KEANU [email or web address] 02/24/20 16:08 KEANU Document 02/24/20 15:57 KEANU [email or web address] 02/24/20 16:08 KEANU Document 02/24/20 16:00 KEANU [email or web address] 02/24/20 16:08 KEANU Document 02/24/20 16:02 KEANU [email or web address] 02/24/20 16:08 KEANU Document 02/24/20 16:08 KEANU [email or web address] 02/24/20 16:08 KEANU 02/24/20 02/24/20 02/24/20 15:45 15:48 15:50 Home O2 Evaluation Test Phase Resting Resting Resting Oxygen Delivery Room Air High Flow Nasal High Flow Nasal Cannula Cannula Oxygen Flow Rate (L/min) 2 3 Pulse Oximetry (90-100 %) 85 L 86 L 87 L Pulse Rate (60-100 beats/min) Home Oxygen Evaluation Comments Treatment Charges 02/24/20 02/24/20 02/24/20 15:53 15:55 15:57 Home O2 Evaluation Test Phase Resting Resting Exercise Oxygen Delivery High Flow Nasal High Flow Nasal High Flow Nasal Cannula Cannula Cannula Oxygen Flow Rate (L/min) 4 5 5 Pulse Oximetry (90-100 %) 87 L 93 85 L Pulse Rate (60-100 beats/min) 99 Home Oxygen Evaluation Comments Treatment Charges 02/24/20 02/24/20 02/24/20 16:00 16:02 16:08 Home O2 Evaluation Test Phase Exercise Exercise Resting Oxygen Delivery High Flow Nasal High Flow Nasal High Flow Nasal Cannula Cannula Cannula Oxygen Flow Rate (L/min) 6 8 5 Pulse Oximetry (90-100 %) 86 L 89 L 91 Pulse Rate (60-100 beats/min) 135 H Home Oxygen Evaluation Comments PT REQUIRES 5L HIGH FLOW RESTING AND 8 L WITH EXERTION Treatment Charges O2 Evaluation
--- NOTE | 2020-02-24 16:08 | PCRCNOTE ---
HOME O2 EVAL DONE, PT REQUIRES HIGH FLOW CANNULA, THIS IS THE SAME EQUIPMENT (HIGH FLOW) HE WAS USING AT HOME. 5 LITERS AT REST AND 8 LITERS WITH ACTIVITY. THIS IS QUITE A BIT LESS THAN HE HAD TO USE PRIOR TO ADMISSION. FRIEND WILL BE BRINGING IN HIS O2 TANKS FROM HOME UPON DISCHARGE, PT HAS CUATE. RN IS AWARE. WILL FAX [facility] FOR [facility].
[2020-02-24 17:05] LABS: SARS-CoV-2 RNA PCR Negative
[2020-02-25] VITALS (9 sets, daily range): BP systolic 108–159; BP diastolic 64–86; PULSE 61–100; RESP 18–28; TEMP 36.4–37.2; O2SAT 90–97
--- NOTE | 2020-02-25 | ECHO_ITS ---
Patient Info Name: Ronald De La Torre Age: 59 years : 1960 Gender: Male Ht: 73 in Wt: 196 lbs BSA: 2.15 m2 HR: 80 bpm BP: 159 / 86 mmHg Heart Rhythm: Sinus Rhythm Technical Quality: Poor Exam Date: 02/25/2020 7:29 AM Exam Location: [facility] Patient Status: Inpatient Admit Date: 02/22/2020 Staff Ordering Physician: Britney Russ PA-C Yard Coupler: [email or web address] Attending Provider: Britney Russ PA-C Referring Physician: Petrona HARE; Exam Type: CA echo dop color flow w con Study Info Complete two-dimensional, color flow and Doppler transthoracic echocardiogram is performed with contrast to opacify the left ventricle and to improve the deliniation of the left ventricle endocardial borders. Contrast/Agitated Saline Contrast/Ag. Saline: Definity Amount: 4.00 ml Reason for Poor Study: patient body habitus Summary 1. Normal left ventricular size with mild concentric hypertrophy. Hyperdynamic left ventricular systolic function with estimated ejection fraction greater than 70%, and no segmental wall motion abnormalities. Grade 1 diastolic dysfunction is present. 2. The right ventricle is never well seen but may have some right ventricular dysfunction based on TAPSE and RV S'. 3. There is mild aortic valve stenosis with a peak velocity of 3 m/sec, mean gradient of 18 mmHg, and aortic valve area of 1.7-1.9 cm2. Never well seen but has mild calcification present. 4. There is mildly increased Doppler velocity across the pulmonic valve of 2 m/sec, suggesting minimum pulmonic valve stenosis. 5. The pulmonary pressure could not be estimated on this study. 6. Technically difficult study requiring definity echo contrast. 7. Normal sinus rhythm. Left Ventricle Left ventricular chamber dimension is normal. Left ventricular systolic function is hyperdynamic, estimated at >70%. There is mildly increased left ventricular wall thickness. Left ventricular septal wall motion is normal. The left ventricular diastolic function is grade I diastolic dysfunction. Normal left ventricular size with mild concentric hypertrophy. Hyperdynamic left ventricular systolic function with estimated ejection fraction greater than 70%, and no segmental wall motion abnormalities. Grade 1 diastolic dysfunction is present. The right ventricle is never well seen but may have some right ventricular dysfunction based on TAPSE and RV S'. Right Ventricle Right ventricular chamber dimension is normal. Right ventricular systolic function is normal. Left Atria Left atrial chamber dimension is normal. Right Atria Right atrial chamber dimension is normal. Aortic Valve The aortic valve is trileaflet. There is no aortic valve sclerosis. There is mild aortic valve stenosis with a peak velocity of 3 m/sec, mean gradient of 18 mmHg, and aortic valve area of 1.7-1.9 cm2. Never well seen but has mild calcification present. There is no aortic valve regurgitation. There is mild aortic valve calcification. Pulmonic Valve The pulmonic valve is normal. There is mildly increased Doppler velocity across the pulmonic valve of 2 m/sec, suggesting minimum pulmonic valve stenosis. There is no pulmonic regurgitation. Mitral Valve The mitral valve has normal leaflets. There is no mitral valve stenosis. There is no mitral valve regurgitation. Tricuspid Valve The tricuspid valve leaflets are normal. There is no significant tricuspid valve stenosis. There is no tricuspid valve
[2020-02-25] MEDS: ALBUTEROL SULFATE NEB 2.5 MG/0.5 ML INH 5 MG INHALATION ×3 (01:53→14:29)
[2020-02-25 06:30] LABS: Hematocrit 32.9 % (42.0-52.0); Hemoglobin 10.2 g/dL (14.0-18.0); Mean Corpuscular Hemoglobin 27.9 pg (26-34); Mean Corpuscular Volume 89.9 fl (80-100); Mean Platelet Volume 9.4 fl (7.4-10.4); Platelet Count Result 256 k/mm3 (150-375); Red Blood Count 3.66 M/mm3 (4.6-6.20); Red Cell Distribution Width 14.3 % (11.5-14.5); White Blood Count 9.3 K/mm3 (4.5-10.0)
[2020-02-25] MEDS: LEVOTHYROXINE SODIUM 100 MCG TABLET PO (06:37)
[2020-02-25] MEDS: ENOXAPARIN 100 MG/ML SYRINGE 90 MG SUB-Q (06:37)
[2020-02-25] MEDS: ASPIRIN 81 MG ENTERIC TABLET PO (08:46)
[2020-02-25] MEDS: TAMSULOSIN HCL 0.4 MG CAPSULE PO (08:46)
[2020-02-25] MEDS: FLUDROCORTISONE ACETATE 0.1 MG TABLET PO ×2 (08:46→16:49)
[2020-02-25] MEDS: METOPROLOL TARTRATE 12.5 MG TABLET PO (08:46)
[2020-02-25] MEDS: LITHIUM CARBONATE 300 MG CAPSULE PO ×2 (08:46→16:49)
[2020-02-25] MEDS: predniSONE 20 MG TABLET 60 MG PO (08:46)
[2020-02-25] MEDS: GABAPENTIN 300 MG CAPSULE PO ×2 (08:46→16:49)
[2020-02-25 09:47] LABS: NT Pro B Type Natriuretic Pept 131 PG/ML (5-100)
[2020-02-25 10:59] LABS: Anion Gap 5 mmol/L (8-16); Blood Urea Nitrogen 18 mg/dL (9-20); CRP 1.3 mg/dL (<1.0); Calcium 9.2 mg/dL (8.4-10.2); Carbon Dioxide 35 mmol/L (22-30); Chloride 102 mmol/L (98-107); Estimated CRCL calculation 113 ml/min; Estimated Glomerular Filt Rate > 60; Glucose 112 mg/dL (75-110); Potassium 3.4 mmol/L (3.4-5.0); Sodium 142 mmol/L (137-145)
--- NOTE | 2020-02-25 13:45 | PM.DS ---
DS: Admitting Diagnosis Admitting Diagnosis Admitting Diagnosis: acute on chronic respiratory failure/pneumonia/PUI DS: Discharge Diagnosis Discharge Diagnosis (1) PNA (pneumonia): Code(s): J18.9 - Pneumonia, unspecified organism Status: Acute Assessment and Plan: CT of the lungs showed patchy airspace opacities in the left upper lobe and lingula and more diffuse opacities in the right middle and lower lobes concerning for pneumonia -patient improved with antibiotic therapy and will be continued at discharge -COVID-19 test was negative -was able to go home on his home setting of oxygen -he also has severe COPD -he was given a prednisone taper (2) Pulmonary embolism: Code(s): I26.99 - Other pulmonary embolism without acute cor pulmonale Status: Acute Assessment and Plan: Noted on CTA on admission -he was on Lovenox but transition to Xarelto -care coordination gil Xarelto which will cost him 0 dollars a month -echo reviewed, unable to assess her right ventricle or pulmonary pressure -BNP very minimally elevated, significant heart failure not suspected (3) Depression: Code(s): F32.9 - Major depressive disorder, single episode, unspecified Status: Chronic Assessment and Plan: Chronic but stable -continue lithium, Zyprexa and Viibryd (4) Hypertension: Code(s): I10 - Essential (primary) hypertension Status: Chronic Assessment and Plan: Last blood pressure 108/64 -continue metoprolol (5) Bipolar disorder: Code(s): F31.9 - Bipolar disorder, unspecified Status: Chronic Assessment and Plan: Chronic and well controlled -continue lithium, Zyprexa and Viibryd (6) COPD (chronic obstructive pulmonary disease): Qualifiers: COPD type: unspecified COPD Qualified Code(s): J44.9 - Chronic obstructive pulmonary disease, unspecified Code(s): J44.9 - Chronic obstructive pulmonary disease, unspecified Status: Acute Assessment and Plan: Severe emphysema seen on CTA -continue O2 (7) Dependence on nocturnal oxygen therapy: Code(s): Z99.81 - Dependence on supplemental oxygen Status: Acute (8) BPH (benign prostatic hyperplasia): Code(s): N40.0 - Benign prostatic hyperplasia without lower urinary tract symptoms Status: Chronic Assessment and Plan: Continue Flomax (9) Hypothyroid: Code(s): E03.9 - Hypothyroidism, unspecified Status: Acute Assessment and Plan: Will continue home levothyroxine -TSH slightly low but T4 normal. No indication for medication change at this time. TSH likely abnormal due to current illness DS: Summary Hospital Course Reason for hospitalization: Pneumonia Hospital Course: 59-year-old male with a past medical history of MAC, COPD and on home oxygen who presented emergency room for shortness of breath. Temperature 98.2?, pulse 100, respiratory rate 23, blood pressure 134/84, pulse ox 97 on his home oxygen in the ER. CBC shows white blood cells 9.6, hemoglobin 10.5, hematocrit 34.6, platelets 207. BMP does not show any significant abnormalities. Influenza negative. CT of the chest showed single pulmonary a filling defect consistent with PE and also new patchy airspace opacities in the left upper lobe and lingula and more diffuse opacities in the right middle lobe concerning for pneumonia. It also showed severe emphysema. The patient was admitted to the hospitalist service and observed. He was continued on Levaquin and his COVID-19 test was negative. He improved and was on his home oxygen. He was started on prednisone and discharged on a prednisone taper. 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 He did call their office before he was admitted and they ca
[2020-02-25] MEDS: SIMETHICONE 80 MG TAB.CHEW PO (14:31)
--- NOTE | 2020-03-06 12:34 | PC.NURSE ---
Blood cx are negative.
== END 2020-02-25 17:15 | disposition home or self-care (01) | DRG 193 ==
LOC: ANHED 16:46 → ANH3MEDSUR 19:41
PROVIDERS: Admitting Provider Internal Medicine; Emergency Provider General Practice; PCP Family Medicine Adolescent Medicine; Visit Provider Physician Assistant
DX: J18.9 Pneumonia, unspecified organism (principal); J96.20 Acute and chronic respiratory failure, unspecified whether with hypoxia or hypercapnia; I26.99 Other pulmonary embolism without acute cor pulmonale; J44.0 Chronic obstructive pulmonary disease with (acute) lower respiratory infection; F31.9 Bipolar disorder, unspecified; I10 Essential (primary) hypertension; N40.0 Benign prostatic hyperplasia without lower urinary tract symptoms; E03.9 Hypothyroidism, unspecified; Z99.81 Dependence on supplemental oxygen; Z20.828 Contact with and (suspected) exposure to other viral communicable diseases
CPT/HCPCS: 36415; 36600; 71045; 71275; 80048; 80053; 82805; 83735; 83880; 84439; 84443; 84480; 84484; 85025; 85027; 85380; 85610; 85730; 86140; 87040; 87635; 87804; 93005; 94618; 94640; 99291; A9270; C8929; C9803; J1650; J1956; J7512; Q9957; Q9967; U0003